=== PATIENT | female | born 1975 | race Caucasian/White ===

== ENCOUNTER 2024-02-10 09:05 | Outpatient (OUT) | payer OTHER, SELFPAY ==
--- NOTE | 2024-02-10 09:13 | MM_ITS ---
Patient Name: TEMI LANGLEY MR#: [id number] : 1975 Exam Date: 02/10/2024 Ordering Doctor: DR KIMO HUFFMAN RADIOLOGY REPORT PROCEDURE: MM TOMOSYNTHESIS SCREENING BI COMPARISON: MAMMO TYLER DX, 05/01/2016. MG MAMM SCREEN 3D TYLER CAD, 04/25/2021. INDICATIONS: screening Calculator Name NCI Breast Cancer Risk Assessment Tool 5 Year Breast Cancer Risk 1.70% Lifetime Breast Cancer Risk 15.10% Personal Breast Cancer No Personal Ovarian Cancer No Treatments None Family Cancers Mother with breast cancer at age 40; Father with unknown cancer at age ~68. LOCATION: [facility] BREAST COMPOSITION: The breasts are heterogeneously dense,which may obscure small masses. FINDINGS: DIAGNOSTIC CATEGORY 2--BENIGN FINDING. NO CHANGE FROM COMPARISON. Scattered benign-appearing nodules are present. Scattered benign-appearing calcifications are present. Scattered benign-appearing lymph nodes are present. RIGHT BREAST: No significant suspicious finding. LEFT BREAST: No significant suspicious finding. RECOMMENDATIONS: ROUTINE MAMMOGRAM AND CLINICAL EVALUATION IN 12 MONTHS. PLEASE NOTE: A NORMAL MAMMOGRAM DOES NOT EXCLUDE THE POSSIBILITY OF BREAST CANCER. A CLINICALLY SUSPICIOUS PALPABLE LUMP SHOULD BE BIOPSIED. Dictated by: Zeeshan Lee MD on 02/10/2024 at 11:01 Approved by: Zeeshan Lee MD on 02/10/2024 at 11:02
== END 2024-02-10 09:06 | disposition home or self-care (01) ==
LOC: MAMMO 09:08
PROVIDERS: PCP Family Medicine; Visit Provider Physician Assistant
DX: Z12.31 Encounter for screening mammogram for malignant neoplasm of breast (principal); Z80.3 Family history of malignant neoplasm of breast; Z80.8 Family history of malignant neoplasm of other organs or systems
CPT/HCPCS: 77063; 77067